=== PATIENT | female | born 1995 | race Caucasian/White ===

== ENCOUNTER → 2021-02-18 17:03 | Outpatient (CLI) | payer SELFPAY ==
[2021-02-18 17:31] LABS: Absolute Lymphocyte Count 2.15 X10^3/uL (0.83-4.51); Absolute Neutrophil Count 8.2 X10^3/uL (2.0-7.7); Basophil# 0.04 X10^3/uL; Basophil% 0.4 % (0-1); Eosinophil# 0.09 X10^3/uL; Eosinophils% 0.8 % (0-5); Hematocrit 36.1 % (37-47); Hemoglobin 12.6 g/dL (12.0-15.0); Lymphocyte # 2.15 X10^3/ul (0.83-4.51); Lymphocyte % 19.2 % (19-41); Mean Corp Hgb Conc 34.9 g/dL (32-36); Mean Corpuscular Volume 91.6 fL (81-99); Monocyte# 0.73 X10^3/uL; Monocyte% 6.5 % (0-10); NRBC Flagged by Analyzer 0 % (0-5); Neutrophil # 8.15 X10^3/uL (2.7-7.7); Neutrophil % 72.7 % (47-70); Platelet Count 249 K/mm3 (150-450); RBC Distribution Width CV 11.7 % (11.6-14.6); RBC Distribution Width SD 39.2 fl (35.1-43.9); Red Blood Count 3.94 M/mm3 (4.2-5.4); White Blood Count 11.2 K/mm3 (4.4-11.0)
[2021-02-18 17:38] LABS: POSITIVE COUNT NO; POSITIVE DIFFERENTIAL NO; POSITIVE MORPHOLOGY NO
[2021-02-19 09:23] LABS: HIV - WCH Non-Reactive (Nonreactive); Hepatitis B Surface Antigen Non-Reactive (Nonreactive); Hepatitis C Antibody Non-Reactive (Nonreactive); Rubella IgG Reactive (Nonreactive); Syphilis Antibodies Non-reactive
== END ==
PROVIDERS: PCP Family Medicine; Visit Provider Obstetrics & Gynecology
DX: Z34.81 Encounter for supervision of other normal pregnancy, first trimester (principal)
CPT/HCPCS: 36415; 85025; 86703; 86762; 86780; 86803; 87086; 87088; 87340

== ENCOUNTER 2021-05-29 16:21 | Outpatient (CLI) | payer BC, SELFPAY ==
[2021-05-29 17:26] LABS: Hemoglobin 11.9 g/dL (12.0-15.0); Mean Corpuscular Hgb 32.5 pg (27.0-32.0); Mean Corpuscular Volume 95.6 fL (81-99); Mean Platelet Vol. 10.8 fl (6.2-12.0); Platelet Count 277 K/mm3 (150-450); RBC Distribution Width CV 11.9 % (11.6-14.6); RBC Distribution Width SD 41.4 fl (35.1-43.9); Red Blood Count 3.66 M/mm3 (4.2-5.4); White Blood Count 15.3 K/mm3 (4.4-11.0)
[2021-05-29 23:10] LABS: Glucose Challenge Gest 1H 50g 120 mg/dL (70-140)
== END 2021-05-29 23:59 | disposition short-term general hospital (02) ==
LOC: WOBLAB 17:04
PROVIDERS: PCP Family Medicine; Visit Provider Obstetrics & Gynecology
DX: Z34.82 Encounter for supervision of other normal pregnancy, second trimester (principal)
CPT/HCPCS: 36415; 82950; 85027

== ENCOUNTER 2021-06-19 15:49 | Outpatient (CLI) | payer BC, SELFPAY | END 2021-06-19 23:59 | disposition short-term general hospital (02) | PROVIDERS: PCP Family Medicine; Visit Provider Obstetrics & Gynecology | DX: Z34.83 Encounter for supervision of other normal pregnancy, third trimester (principal) | CPT/HCPCS: 36415; 86850 ==

== ENCOUNTER 2021-08-14 16:21 | Outpatient (CLI) | payer BC, SELFPAY | END 2021-08-14 23:59 | disposition home or self-care (01) | LOC: LABSPEC 16:22 | PROVIDERS: Referring Provider Obstetrics & Gynecology; Visit Provider Obstetrics & Gynecology | DX: Z36.85 Encounter for antenatal screening for Streptococcus B (principal) | CPT/HCPCS: 87081 ==

== ENCOUNTER 2021-09-03 19:00 | Inpatient (IN) | payer BC, SELFPAY ==
[2021-09-03] VITALS (7 sets, daily range): BP systolic 128–168; BP diastolic 75–91; PULSE 64–82; TEMP 36.5–36.8; O2SAT 99; BMI 25.7
[2021-09-03] MEDS: Lactated Ringers 1,000 ML 50 ML IV (19:30)
[2021-09-03 19:52] LABS: Absolute Lymphocyte Count 2.18 X10^3/uL (0.83-4.51); Basophil# 0.05 X10^3/uL; Basophil% 0.3 % (0-1); Eosinophil# 0.13 X10^3/uL; Eosinophils% 0.9 % (0-5); Hematocrit 32.6 % (37-47); Hemoglobin 10.9 g/dL (12.0-15.0); Lymphocyte # 2.18 X10^3/ul (0.83-4.51); Lymphocyte % 14.8 % (19-41); Mean Corp Hgb Conc 33.4 g/dL (32-36); Mean Corpuscular Hgb 30.9 pg (27.0-32.0); Mean Corpuscular Volume 92.4 fL (81-99); Mean Platelet Vol. 11.5 fl (6.2-12.0); Monocyte# 1.29 X10^3/uL; Monocyte% 8.8 % (0-10); NRBC Flagged by Analyzer 0 % (0-5); Neutrophil # 10.97 X10^3/uL (2.7-7.7); Neutrophil % 74.7 % (47-70); Platelet Count 277 K/mm3 (150-450); Red Blood Count 3.53 M/mm3 (4.2-5.4); White Blood Count 14.7 K/mm3 (4.4-11.0)
[2021-09-03] MEDS: Oxytocin 30 units/NS 500 ml 30 UNITS/500 ML IV.SOLN IV (21:00)
[2021-09-03] MEDS: Ondansetron 4 MG/2 ML Vial IV (23:04)
[2021-09-03] MEDS: 0.9% Saline Lock 10 ML Syringe IV ×2 (23:05→23:39)
[2021-09-03] MEDS: Lactated Ringers 500 ML 999 ML IV (23:17)
[2021-09-03] MEDS: proCHLORPERazine 10 MG/2 ML Vial IV (23:39)
[2021-09-04] VITALS (47 sets, daily range): BP systolic 115–159; BP diastolic 11–95; PULSE 59–110; RESP 16; TEMP 36.1–36.9; O2SAT 97–100
[2021-09-04] MEDS: fentaNYL-bupivacaine (epidural) 100 ML BAG EPIDURAL ×3 (00:33→10:06)
[2021-09-04] MEDS: Lactated Ringers 1,000 ML 200 ML IV ×3 (04:39→13:25)
[2021-09-04] MEDS: Ondansetron 4 MG/2 ML Vial IV ×3 (05:42→13:03)
[2021-09-04] MEDS: 0.9% Saline Lock 10 ML Syringe IV (05:42)
--- NOTE | 2021-09-04 07:07 | HP.PCM.OB_ITS ---
History and Physical Date of Admission: 09/04/21 Chief complaint: Induction of labor at term History of present illness: 26-year-old G3, P0 at 40 weeks and 2 days with KALI: 09/02/2021 by 6-week ultrasound arrives for induction of labor at term. Denies headache, visual changes, chest pain, shortness of breath, nausea vomiting, right upper quadrant pain. Patient states good movement. Obstetric history: G1: SAB G2: SAB G3: Current Past medical history: None Medications: vitamin Surgeries: [place] teeth extraction, elbow Allergies: No known drug allergies Social history: Denies smoking, alcohol use, drug use Family history: Denies a history of DVT or PE Review of systems: Besides above pertinent positives a full review of systems was performed and found to be negative Physical exam: Vitals: Blood pressure 139/68 pulse 83 temp 97.5 Fahrenheit SPO2 98% on room air General: Normal-appearing no acute distress HEENT: Normocephalic/atraumatic no cervical lymphadenopathy Cardiac/respiratory: No use of accessory muscles, nonlabored breathing Abdomen: Soft, nontender, gravid Pelvic exam: Cervix 8/80/-2. AROM clear fluid Extremities: No peripheral edema normal peripheral pulses Psych: Normal affect normal demeanor nonpressured speech Labs: Blood cell count 14.7 hemoglobin 10.9 hematocrit 32.6% platelets 277 Assessment plan: 26-year-old G3, P0 at 40 weeks and 2 days for induction of labor at term Admit labor delivery CEFM GBS negative Rh- Cytotec and Pitocin AROM clear fluid Routine orders
[2021-09-04] MEDS: Lactated Ringers 500 ML 999 ML IV (11:43)
[2021-09-04] MEDS: Oxytocin 30 units/NS 500 ml 30 UNITS/500 ML IV.SOLN 334 UNITS IV (12:45)
--- NOTE | 2021-09-04 12:56 | EX.PCM.OBRPT ---
Vaginal Delivery Findings Description of Procedure: Normal spontaneous vaginal delivery of a viable female infant, vertex RUBI. Head and shoulders delivered with ease. Cord cut and clamped. Baby handed off to patient. Placenta delivered via cord traction and fundal massage. Second-degree midline perineal laceration noted and repaired in typical fashion. Left labial laceration noted and repaired in typical fashion. EBL 300 cc Apgars 8/9
--- NOTE | 2021-09-04 15:08 | NURSING ---
epidural cath removed, blue tip intact
[2021-09-04] MEDS: Ibuprofen 600 MG Tablet PO (15:56)
[2021-09-05] VITALS (8 sets, daily range): BP systolic 126–142; BP diastolic 66–87; PULSE 64–83; RESP 16–18; TEMP 36.4–36.6; O2SAT 97–99
[2021-09-05] MEDS: Acetaminophen 500 MG Tablet 1000 MG PO (03:37)
[2021-09-05] MEDS: Ibuprofen 600 MG Tablet PO (08:23)
--- NOTE | 2021-09-05 08:31 | PCM.DC ---
Discharge Instructions Diet Discharge Diet: No restrictions Activity Discharge Activity: Return to Normal Activity, May Drive and May Shower May resume sexual activity in: 4-6 weeks Weight Bearing Status: Weight bearing as tolerated Dressing / Incision Call your doctor if your incision/area has: Continuous Slow Oozing and Foul Smelling Discharge Call your doctor if you observe: Fever of 101 or Higher, Shortness of breath and Chest pain Follow Up Care Please Follow Up With: Grzegorz Fernandez MD When: 2 week telehealth, 4 to 6 weeks Test Results: Test results from this visit will be discussed in further detail at your follow-up appointment, if applicable. Discharge Plan Admission Admit Date/Time: 09/03/21 19:00 Attending Provider: Grzegorz Fernandez Discharge Orders/Prescriptions Prescriptions: No Action Pepcid 20 mg DAILY RF: 0 1 tab DAILY RF: 0 Disposition Discharge Orders: Discharge Patient (Routine); Ordered 09/05/21 Ordered By: Dr. Grzegorz Fernandez
--- NOTE | 2021-09-05 08:32 | PCM.PN.OB ---
Subjective Subjective No overnight complaints Objective Data Objective Data Vital Signs: Vital Signs Temp Pulse Resp BP Pulse Ox 97.8 F 64 16 126/70 H 97 09/05/21 07:58 09/05/21 08:02 09/05/21 07:58 09/05/21 08:02 09/05/21 00:26 Oxygen Delivery Method Room Air Weight: 149 lb 8.705 oz Body Mass Index (BMI) 25.7 Intake & Output: Intake and Output for Last 24 Hours 09/03/21 09/04/21 09/05/21 23:59 23:59 23:59 Intake Total 689.17 / 689.17 3576.56 / 3576.56 Output Total 1775 / 1775 Balance 689.17 / 689.17 1801.56 / 1801.56 Lab / Micro Data Result Diagrams: 09/03/21 19:30 Micro: Microbiology 09/03/21 19:40 Nasal Secretion SARS-CoV-2 Antigen (Rapid) - Final Physical Exam Const alert, oriented x3, no apparent distress, average body habitus, healthy appearing and well nourished HEENT normocephalic and moist oral mucous membranes Head and Scalp: atraumatic Face and Sinus: normal facial exam Neck full ROM Resp normal respiratory effort, no retractions and no use of accessory muscles GI GI Narrative: Soft, nontender, uterus firm and below umbilicus Extremity normal to inspection, full ROM and no clubbing, cyanosis or edema Psych mental status grossly normal, affect normal, speech normal and activity/motor behavior normal Assessment & Plan (1) : PLAN: day 1. Breast-feeding. Pain well controlled. Okay to discharge home if okay with bottle label inspector
== END 2021-09-05 15:25 | disposition home or self-care (01) | DRG 807 ==
PROVIDERS: Admitting Provider Obstetrics & Gynecology; Referring Provider Obstetrics & Gynecology; Visit Provider Obstetrics & Gynecology
DX: O48.0 Post-term pregnancy (principal); Z37.0 Single live birth; O26.23 Pregnancy care for patient with recurrent pregnancy loss, third trimester; O70.1 Second degree perineal laceration during delivery; Z3A.40 40 weeks gestation of pregnancy
CPT/HCPCS: 59025; 59050; 85025; 86850; 86900; 86901; 87811; 99218; J7120; A4216; G0378; J2405

== ENCOUNTER → 2021-11-07 | Outpatient (CLI) | payer BC, SELFPAY | END | disposition home or self-care (01) | LOC: LABSPEC 14:46 | PROVIDERS: Visit Provider Obstetrics & Gynecology | DX: Z11.3 Encounter for screening for infections with a predominantly sexual mode of transmission (principal) | CPT/HCPCS: 87491; 87591 ==

== ENCOUNTER → 2023-06-08 | Outpatient (CLI) | payer OTHER, SELFPAY ==
[2023-06-11 22:54] LABS: HPV Reflexed? NOT INDICATED
== END | disposition home or self-care (01) ==
LOC: LAB 11:44
PROVIDERS: PCP Internal Medicine; Referring Provider Advanced Practice Midwife; Visit Provider Advanced Practice Midwife
DX: Z12.4 Encounter for screening for malignant neoplasm of cervix (principal)
CPT/HCPCS: 88175; G0145

== ENCOUNTER → 2024-03-21 | Outpatient (CLI) | payer OTHER, SELFPAY ==
[2024-03-21 09:29] LABS: ALB/GLOB Ratio 1.1 RATIO (0.9-2.4); AST(SGOT) 19 U/L (15-37); Alanine Aminotransfer ALT/SGPT 20 U/L (13-56); Albumin, Serum 3.8 g/dL (3.2-5.0); Alkaline Phosphatase 51 U/L (45-117); Anion Gap 3 (5-15); BUN 12 mg/dL (7-18); CRP 3.92 mg/L (0.0-3.0); Calcium,Total 8.9 mg/dL (8.5-10.1); Chloride 107 mmol/L (98-107); Creatinine, Serum 0.66 mg/dL (0.55-1.02); EST Glomerular Filtration Rate 112 mL/min (>60); Est Glom Filt Rate - Afr Amer 135 mL/min (>60); Globulin 3.5 g/dL (2.2-4.2); Glucose 101 mg/dL (74-106); Protein, Total 7.3 g/dL (6.4-8.2); Sodium Level 137 mmol/L (136-145)
[2024-03-21 09:35] LABS: Absolute Neutrophil Count 4.9 X10^3/uL (2.0-7.7); Basophil# 0.07 X10^3/uL; Eosinophil# 0.21 X10^3/uL; Eosinophils% 2.9 % (0-5); Erythrocyte Sedimentation Rate 7 mm/hr (0-30); Hematocrit 36.2 % (37-47); Mean Corp Hgb Conc 33.1 g/dL (32-36); Mean Corpuscular Hgb 29.9 pg (27.0-32.0); Mean Corpuscular Volume 90.3 fL (81-99); Mean Platelet Vol. 10.3 fl (6.2-12.0); Monocyte# 0.72 X10^3/uL; NRBC Flagged by Analyzer 0 % (0-5); Neutrophil % 67.7 % (47-70); Platelet Count 282 K/mm3 (150-450); RBC Distribution Width SD 39.8 fl (35.1-43.9); Red Blood Count 4.01 M/mm3 (4.2-5.4); White Blood Count 7.2 K/mm3 (4.4-11.0)
[2024-03-22 08:13] LABS: ASO Titer 26.9 IU/mL (0.0-200.0)
[2024-03-22 12:09] LABS: Anti-Centromere B Ab <0.2 AI (0.0-0.9); Anti-Chromatin <0.2 AI (0.0-0.9); Anti-Jo <0.2 AI (0.0-0.9); Anti-Scleroderma-70 AB <0.2 AI (0.0-0.9); Anti-dsDNA Ab <1 IU/mL (0-9); RNP Ab <0.2 AI (0.0-0.9); SJOGREN'S Anti-SS-A test < 0.2 AI (0.0-0.9); SJOGREN'S Anti-SS-B test < 0.2 AI (0.0-0.9); Smith Ab <0.2 AI (0.0-0.9)
== END | disposition home or self-care (01) ==
PROVIDERS: PCP Internal Medicine; Referring Provider Nurse Practitioner; Visit Provider Nurse Practitioner
DX: L52 Erythema nodosum (principal)
CPT/HCPCS: 36415; 80053; 85025; 85652; 86060; 86140; 86225; 86235